=== PATIENT | female | born 1965 | race African-American/Black ===

== ENCOUNTER → 2020-05-03 | Outpatient (CLI) | payer OTHER | LOC: M.ULTRA 04-29 10:52 → M.LAB 10:59 | PROVIDERS: ATTEND Internal Medicine | DX: R53.83 Other fatigue (principal); M79.661 Pain in right lower leg ==

== ENCOUNTER → 2020-11-22 | Outpatient (CLI) | payer OTHER | LOC: M.ULTRA 07:55 | DX: C73 Malignant neoplasm of thyroid gland (principal) ==

== ENCOUNTER → 2020-11-23 | Outpatient (CLI) | payer OTHER | LOC: M.LAB 07:15 | PROVIDERS: ATTEND Orthopaedic Surgery | DX: Z01.812 Encounter for preprocedural laboratory examination (principal); Z20.822 Contact with and (suspected) exposure to COVID-19 ==